=== PATIENT | female | born 1955 | race Caucasian/White ===

== ENCOUNTER 2022-07-31 05:56 | Inpatient (IN) | payer MEDICARE, BC ==
[~2022-07-31] VITALS: Ht 167.6 cm; Wt 72.6 kg
[2022-07-31] MEDS ORDERED: ONDANSETRON 4 MG/2 ML VIAL IV ONE (06:15)
[2022-07-31] MEDS ORDERED: methylPREDNISolone SOD SUCC 125 MG/2 ML VIAL IV ONE (06:15)
[2022-07-31] MEDS ORDERED: HYDROMORPHONE 1 MG/1 ML DISP.SYRIN IV ONE (06:15)
[2022-07-31] MEDS ORDERED: DILT180T11 PO (06:32)
[2022-07-31] MEDS ORDERED: METO50TA16 PO (06:32)
[2022-07-31] MEDS ORDERED: LORA0.5T48 PO (06:32)
[2022-07-31] MEDS ORDERED: [UNRECOGNIZED DRUG - CODE] PO (06:32)
[2022-07-31] MEDS ORDERED: ALPR0.5T8 PO (06:32)
[2022-07-31] MEDS ORDERED: ONDANSETRON 4 MG/2 ML VIAL ONE (06:46)
[2022-07-31] MEDS ORDERED: HYDROMORPHONE 2 MG/1 ML DISP.SYRIN ONE (06:47)
[2022-07-31] MEDS ORDERED: methylPREDNISolone SOD SUCC 125 MG/2 ML VIAL ONE (06:47)
[2022-07-31 06:57] LABS: HEMATOCRIT 39.7 % (31.2-41.9); MEAN CORPUSCULAR HEMOGLOBIN 32.7 uug (24.7-32.8); MEAN CORPUSCULAR VOLUME 95.9 fL (75.5-95.3); PLATELET COUNT (AUTO) 345 K/uL (179-408)
--- NOTE | 2022-07-31 07:00 | NUR ---
receive pt. from SOPHIA KELLEY at this time
--- NOTE | 2022-07-31 07:04 | NUR ---
Report given to Eunice CORTES.
--- NOTE | 2022-07-31 07:04 | NUR ---
Patient sleeping comfortably in bed, no signs of distress noted.
[2022-07-31 07:08] LABS: MAGNESIUM 2.3 mg/dL (1.8-2.4); POTASSIUM 3.7 mmol/L (3.5-5.1)
--- NOTE | 2022-07-31 10:19 | NUR ---
moved to RM 206, with Jean Pierre CORTES
[2022-07-31 10:59] VITALS: BP 140/59
--- NOTE | 2022-07-31 11:00 | NUR ---
report received from Eunice CRUZ RN. pt alert and oriented. presented to ER with severe leg and groin pain. pt have a history of MS. pt ambulatory; skin intact ; lac 22g iv access; continent of both. pt will be admitted to [facility] on [address]. best virgen n.p will f/u care.
[2022-07-31] MEDS ORDERED: ACETAMINOPHEN 325 MG TABLET PO PRN (11:30)
[2022-07-31] MEDS ORDERED: MAGNESIUM HYDROXIDE 30 ML LIQUID UDC PO PRN (11:30)
[2022-07-31] MEDS ORDERED: ZOLPIDEM 5 MG TABLET PO PRN (11:30)
[2022-07-31] MEDS ORDERED: REMEDY ESSENTIAL ZINC PASTE 113 GM TP PRN (11:30)
[2022-07-31] MEDS ORDERED: ONDANSETRON 4 MG/2 ML VIAL IV PRN (11:30)
[2022-07-31] MEDS ORDERED: methylPREDNISolone SOD SUCC 40 MG/ML VIAL IV ONE (12:00)
--- NOTE | 2022-07-31 12:00 | NUR ---
pt was seen by neurologist and hospitalist. new order in placed.
--- NOTE | 2022-07-31 12:57 | NUR ---
WOUND CARE CONSULT: PT SEEN FOR RAISED VESICLES TO RT THIGH, PRESENT ON ADMISSION. PT EXAMINED BY NEURO SEROLOGY TEACHER. DEFER TO PMD/SEROLOGY TEACHER FOR VESICLES. DISCUSSED SKIN PROTECTION WITH NURSING STAFF.MD IN AGREEMENT WITH PLAN OF CARE.
[2022-07-31] MEDS ORDERED: methylPREDNISolone SOD SUCC 1,000 MG in IV DEXTROSE 5% 250 ML IV ONE (13:00)
[2022-07-31] MEDS ORDERED: METO50TA7 PO (13:32)
[2022-07-31] MEDS: HYDROMORPHONE 1 MG/1 ML DISP.SYRIN IV PRN ×2 (13:36→22:47)
[2022-07-31] MEDS: METOPROLOL SUCCINATE XL 50 MG TAB.SR.24H PO SCH (13:41)
[2022-07-31 15:07] VITALS: BP 103/40
[2022-07-31 15:43] LABS: *BILIRUBIN,URIN NEGATIVE (NEGATIVE); *BLOOD, URINE NEGATIVE (NEGATIVE); *CLARITY,URINE CLEAR (CLEAR); *COLOR,URINE YELLOW (YELLOW); *KETONES,URINE NEGATIVE (NEGATIVE); *UROBILINOGEN,URINE 0.2 E.U./dl (NORMAL); LEUKOCYTE ESTERASE ,URINE NEGATIVE (NEGATIVE); NITRITE, URINE NEGATIVE (NEGATIVE); PH,URINE 6.5 (5.0-8.0); UGLUCOSE NEGATIVE (NEGATIVE)
--- NOTE | 2022-07-31 16:40 | NUR ---
MRI OF LSPINE W/O CONTRAST WEN PER CM TIME TO BE DETERMINED
--- NOTE | 2022-07-31 20:00 | NUR ---
RECEIVED PATIENT RESTING IN BED, NOT IN ANY ACUTE DISTRESS, ANSWERED ALL QUESTIONS. BED IN LOWEST POSITION AND CALL LIGHT WITHIN REACH
[2022-07-31 20:17] VITALS: BP 135/57
[2022-07-31] MEDS: DILTIAZEM HCL CD 180 MG CAP.SR.24H PO SCH (22:45)
[2022-08-01 06:00] VITALS: BP 121/53
[2022-08-01] MEDS: PANTOPRAZOLE SODIUM 40 MG TABLET.DR PO SCH (06:28)
[2022-08-01] MEDS: HYDROMORPHONE 1 MG/1 ML DISP.SYRIN IV PRN ×3 (06:29→16:08)
[2022-08-01 06:34] LABS: HEMATOCRIT 39.3 % (31.2-41.9); MEAN CORPUSCULAR HEMOGLOBIN 32.4 uug (24.7-32.8); MEAN CORPUSCULAR VOLUME 95.7 fL (75.5-95.3); PLATELET COUNT (AUTO) 344 K/uL (179-408)
--- NOTE | 2022-08-01 06:48 | NUR ---
PATIENT RESTED WELL IN BED IN BETWEEN CARE, NOT IN ANY ACUTE DISTRESS. PAIN MANAGED WITH DILAUDID. ANSWERED ALL QUESTIONS. MRI CHECKLIST COMPLETED. BED IN LOWEST POSITION AND CALL LIGHT WITHIN REACH. IV DC FROM RIGHT FA AND NEW IV PLACED LEFT FA 22G.
[2022-08-01 06:50] LABS: MAGNESIUM 2.2 mg/dL (1.8-2.4); PHOSPHOROUS 2.9 mg/dL (2.5-4.9); POTASSIUM 4.4 mmol/L (3.5-5.1)
[2022-08-01] MEDS: METOPROLOL SUCCINATE XL 50 MG TAB.SR.24H PO SCH (08:41)
[2022-08-01] MEDS: [UNRECOGNIZED DRUG - OTHER] PO SCH (08:41)
[2022-08-01] MEDS ORDERED: methylPREDNISolone SOD SUCC 125 MG/2 ML VIAL IV SCH (09:00)
[2022-08-01] MEDS ORDERED: methylPREDNISolone SOD SUCC 40 MG/ML VIAL IV SCH (09:00)
[2022-08-01] MEDS ORDERED: METOPROLOL TARTRATE 50 MG TABLET PO SCH (09:00)
[2022-08-01] MEDS ORDERED: METOPROLOL SUCCINATE XL 50 MG TAB.SR.24H PO SCH (09:00)
[2022-08-01] MEDS ORDERED: DILTIAZEM HCL CD 180 MG CAP.SR.24H PO SCH (09:00)
[2022-08-01] MEDS ORDERED: POLYVINYL ALCOHOL OPHT DROPS 15 ML BOTTLE EACHEYE PRN (09:30)
--- NOTE | 2022-08-01 09:45 | NUR ---
SEEN BY DR HOYOS AND Anupama HULL HOSPITALIST WITH ORDER TO PROCEED WITH MRI, CONTINUE WITH SOLUMEDROL ORDERED. ALSO HOSPITALIST ORDERED ATIVAN FOR ANXIETY PRN
[2022-08-01] MEDS: VALACYCLOVIR HCL 500 MG TABLET PO SCH ×2 (10:37→21:41)
[2022-08-01] MEDS: methylPREDNISolone SOD SUCC 500 MG in IV DEXTROSE 5% 100 ML IV SCH (11:02)
[2022-08-01] MEDS: MUPIROCIN 2% OINT 22 GM TUBE TP SCH ×2 (11:02→21:41)
[2022-08-01 12:00] VITALS: BP 117/54
--- NOTE | 2022-08-01 12:37 | NUR ---
TO J[facility] MUNROE VIA AMBULANCE FOR MRI
--- NOTE | 2022-08-01 14:08 | NUR ---
BACK FROM MRI NO SS OF PAIN OR DISTRESS
[2022-08-01 14:55] VITALS: BP 126/56
--- NOTE | 2022-08-01 15:40 | NUR ---
CONTINUE WITH PAIN MANAGEMENT ORDERED, NO ACUTE CHANGE FROM MORNING ASSESSMENT
[2022-08-01] MEDS ORDERED: FAMOTIDINE. 20 MG/2 ML VIAL IV SCH ×3 (16:00→17:00)
--- NOTE | 2022-08-01 16:00 | NUR ---
C/O GENERALIZED ITCHING DELLA NOTIFIED WITH ORDERS
[2022-08-01] MEDS ORDERED: hydrOXYzine HCL 10 MG/5 ML UDC PO PRN (16:45)
[2022-08-01] MEDS: hydrOXYzine HCL 10 MG TABLET PO PRN (16:48)
--- NOTE | 2022-08-01 17:00 | NUR ---
FIRST DOSE OF PEPCID AND ATARAX GIVEN FOR GENERALIZED ITCHING, OBSERVED
--- NOTE | 2022-08-01 17:59 | NUR ---
PEPDOSE DOSE FOR 1700 NOT GIVEN, FIRST DOSE GIVEN AT 1648
[2022-08-01 20:00] VITALS: BP 143/62
[2022-08-01] MEDS: DILTIAZEM HCL CD 180 MG CAP.SR.24H PO SCH (21:41)
[2022-08-01] MEDS: LORAZEPAM 2 MG/1 ML VIAL IV PRN (22:34)
--- NOTE | 2022-08-02 | NUR ---
RESTING QUIETLY IN BED, NO ACUTE DISTRESS NOTED.IN [employer]IRITS,
[2022-08-02] MEDS: HYDROMORPHONE 1 MG/1 ML DISP.SYRIN IV PRN (04:23)
[2022-08-02] MEDS: PANTOPRAZOLE SODIUM 40 MG TABLET.DR PO SCH (06:06)
[2022-08-02 06:31] VITALS: BP 103/38
--- NOTE | 2022-08-02 08:00 | NUR ---
SEEN BY Anupama HULL FOR F/U, DISCLOSED PLAN OF CARE AND RESULTS OF MRI. WILL START ON ROCEPHIN IV. SEE NOTES. STILL C/O ON AND OFF SPASM LOWER SPINE WILL INITIATE PRN MEDICATION ORDERED
[2022-08-02] MEDS: VALACYCLOVIR HCL 500 MG TABLET PO SCH ×2 (08:52→20:19)
[2022-08-02] MEDS: [UNRECOGNIZED DRUG - OTHER] PO SCH ×2 (08:53→09:00)
[2022-08-02] MEDS: MUPIROCIN 2% OINT 22 GM TUBE TP SCH ×2 (08:53→21:00)
[2022-08-02] MEDS ORDERED: SENNOSIDES 1 TABLET PO PRN ×2 (09:00→15:15)
[2022-08-02] MEDS: CARISOPRODOL 350 MG TABLET PO PRN ×2 (09:00→15:31)
[2022-08-02] MEDS: METOPROLOL SUCCINATE XL 50 MG TAB.SR.24H PO SCH (09:06)
[2022-08-02] MEDS: CEFTRIAXONE 1 G in IV DEXTROSE 5% 50 ML IV SCH (09:21)
--- NOTE | 2022-08-02 10:00 | NUR ---
ROECKIN IV FIRST DOSE GIVEN NO SIGNS OF ALLERGY REACTION NOTED
[2022-08-02] MEDS: methylPREDNISolone SOD SUCC 500 MG in IV DEXTROSE 5% 100 ML IV SCH (10:23)
[2022-08-02 12:00] VITALS: BP 138/59
[2022-08-02] MEDS ORDERED: methylPREDNISolone SOD SUCC 500 MG in IV DEXTROSE 5% 100 ML IV ONE (15:00)
[2022-08-02] MEDS: MAGNESIUM HYDROXIDE 30 ML LIQUID UDC PO PRN (15:30)
[2022-08-02 16:00] VITALS: BP 157/64
[2022-08-02] MEDS: FAMOTIDINE. 20 MG/2 ML VIAL IV SCH (16:12)
[2022-08-02] MEDS: hydrOXYzine HCL 10 MG TABLET PO PRN (16:19)
[2022-08-02 20:00] VITALS: BP 137/57
[2022-08-02] MEDS: LORAZEPAM 2 MG/1 ML VIAL IV PRN (20:18)
[2022-08-02] MEDS: DILTIAZEM HCL CD 180 MG CAP.SR.24H PO SCH (21:00)
--- NOTE | 2022-08-02 23:16 | NUR ---
REPORT GIVEN TO SOPHIA GTZ
[2022-08-03] MEDS: LORAZEPAM 2 MG/1 ML VIAL IV PRN ×2 (04:30→16:45)
--- NOTE | 2022-08-03 07:40 | NUR ---
RESTED FAIRLY WELL, FOR MRI OF LUMBAR IN AM, CONSENT SIGNED,APPROPRIATE PAPERWORKS COMPLETED. YONI GAR WILL ARRANGE FOR TRANSPORT SERVICE TO GO TO [facility] AT 11 AM , ENDORSED TO AM NURSE IN FAIR CONDITION.
[2022-08-03] MEDS: PANTOPRAZOLE SODIUM 40 MG TABLET.DR PO SCH (08:07)
[2022-08-03] MEDS: [UNRECOGNIZED DRUG - OTHER] PO SCH (08:08)
[2022-08-03] MEDS: CEFTRIAXONE 1 G in IV DEXTROSE 5% 50 ML IV SCH (08:08)
[2022-08-03] MEDS: VALACYCLOVIR HCL 500 MG TABLET PO SCH ×2 (08:09→20:33)
[2022-08-03] MEDS: MUPIROCIN 2% OINT 22 GM TUBE TP SCH ×2 (08:09→20:33)
[2022-08-03] MEDS: METOPROLOL SUCCINATE XL 50 MG TAB.SR.24H PO SCH (08:35)
[2022-08-03] MEDS ORDERED: methylPREDNISolone SOD SUCC 1,000 MG in IV DEXTROSE 5% 250 ML IV SCH (09:00)
--- NOTE | 2022-08-03 10:15 | NUR ---
Spoke to pharmacy regarding Rocephin and Solu-medrol being scheduled at the same time. They said okay to give in the same IV one after the other. Gave Rocephin first at 60mls/hr for pt comfort. Since pt is leaving the facility for an MRI, pharmacy agreed that it would be okay to hold her Solu-medrol and give it when she returns to her room after her procedure.
[2022-08-03] MEDS: HYDROMORPHONE 1 MG/1 ML DISP.SYRIN IV PRN ×2 (10:25→21:22)
--- NOTE | 2022-08-03 10:55 | NUR ---
Pt left unit for MRI of Lumbar spine at [facility]. Pt stable, VSS, pain meds given, no s/s of distress or SOB noted. Left via ambulance accompanied by 2 collection card clerk.
--- NOTE | 2022-08-03 14:43 | NUR ---
PATIENT FALL: When the patient arrived back to the Med Surg unit from her MRI at [facility], I was in another room and a different nurse signed for the patient from the ambulance. That nurse reported to me that the ambulance placed the patient in her chair next to her bed, which the patient confirmed. Then when that nurse checked on the patient, the patient was on the floor. I immediately went to check on the patient. The patient reported to me that she tried to move the bed by herself without notifying anyone or asking for help. The bed was locked, so when the patient pulled the headboard came off and she fell backwards into the wall and padded foot stool and then onto the floor, knocking over the water on her table in the process. She hit her head (no lump or laceration noted), hit her back (patient c/o pain and was given Soma per patient request and an ice pack was placed on her low back), and hit her Right forearm (no new bruise noted at this time, an ice pack was placed on her forearm). I spoke to Red Gunn NP and he is in agreement with treatment and continued monitoring. Educated patient on the need to ask for help, use her call light, and notify staff when she needs help moving her bed or anything else that could cause her pain/injury. Patient verbalized understanding. Will continue to monitor patient for changes, which the patient was educated to report as well. Will endorse.
[2022-08-03] MEDS: CARISOPRODOL 350 MG TABLET PO PRN (14:54)
[2022-08-03] MEDS: methylPREDNISolone SOD SUCC 1,000 MG in IV DEXTROSE 5% 250 ML IV SCH (15:17)
[2022-08-03 16:00] VITALS: BP 148/58
--- NOTE | 2022-08-03 16:24 | NUR ---
Pt spoke with her management trainee who asked if we can biopsy the bumps on her Right leg, which the pt thinks is herpes. I spoke with Red Gunn NP and he says that we do not do biopsies here. He confirmed that the bumps are herpes and that is why he is treating pt with Valacyclovir. Notified the pt.
[2022-08-03] MEDS: FAMOTIDINE. 20 MG/2 ML VIAL IV SCH (17:00)
[2022-08-03] MEDS ORDERED: GADOTERATE MEGLUMINE 10 MMOL/20 ML VIAL IV ONE (17:30)
--- NOTE | 2022-08-03 20:00 | NUR ---
RECEIVED PATIENT AWAKE IN BED. A/O X4. C/O MUILD DISCOMFORT AT THIS TIME, DENIES ANY NEED FOR PAIN MEDICATION AT THIS TIME. CALL LIGHT IN REACH. ALL NEEDS ATTENDED, WILL CONTINUE TO MONITOR AND ASSESS.
[2022-08-03 20:30] VITALS: BP 135/53
[2022-08-03] MEDS: DILTIAZEM HCL CD 180 MG CAP.SR.24H PO SCH (20:34)
[2022-08-04 05:46] VITALS: BP 144/55
[2022-08-04] MEDS: PANTOPRAZOLE SODIUM 40 MG TABLET.DR PO SCH (06:11)
[2022-08-04] MEDS: CEFTRIAXONE 1 G in IV DEXTROSE 5% 50 ML IV SCH ×2 (09:51→22:49)
[2022-08-04] MEDS: MUPIROCIN 2% OINT 22 GM TUBE TP SCH ×2 (09:52→21:00)
[2022-08-04] MEDS: VALACYCLOVIR HCL 500 MG TABLET PO SCH ×2 (09:52→21:06)
[2022-08-04] MEDS: METOPROLOL SUCCINATE XL 50 MG TAB.SR.24H PO SCH (09:58)
[2022-08-04] MEDS: [UNRECOGNIZED DRUG - OTHER] PO SCH (09:59)
[2022-08-04] MEDS: MAGNESIUM HYDROXIDE 30 ML LIQUID UDC PO PRN (10:14)
[2022-08-04 11:33] VITALS: BP 177/67
[2022-08-04] MEDS: LORAZEPAM 2 MG/1 ML VIAL IV PRN (12:39)
[2022-08-04] MEDS ORDERED: CLONIDINE HCL 0.1 MG TABLET PO PRN (12:45)
[2022-08-04 16:00] VITALS: BP 148/58
[2022-08-04] MEDS: ERYTHROMYCIN 0.5% OPHT OINT 3.5 GM TUBE EACHEYE SCH ×2 (16:29→21:00)
[2022-08-04] MEDS: methylPREDNISolone SOD SUCC 1,000 MG in IV DEXTROSE 5% 250 ML IV SCH (16:30)
[2022-08-04] MEDS ORDERED: FLURANDRENOLIDE TOP SCH (17:00)
--- NOTE | 2022-08-04 20:00 | NUR ---
Patient received in bed alert and oriented vital BP high medication given as order made safe and comfortable. patient complained of generalize pain medication given as order made safe and comfortable.
[2022-08-04] MEDS: DILTIAZEM HCL CD 180 MG CAP.SR.24H PO SCH (21:05)
[2022-08-04] MEDS: HYDROMORPHONE 1 MG/1 ML DISP.SYRIN IV PRN (22:49)
[2022-08-05] VITALS: BP 144/71
[2022-08-05] MEDS: HYDROMORPHONE 1 MG/1 ML DISP.SYRIN IV PRN ×3 (02:04→02:07)
[2022-08-05] MEDS: LORAZEPAM 2 MG/1 ML VIAL IV PRN (02:06)
--- NOTE | 2022-08-05 02:38 | NUR ---
patient complained of anxiety medication given as order patient made safe and comfortable with continue monitor.
[2022-08-05 06:56] LABS: HEMATOCRIT 39.7 % (31.2-41.9); MEAN CORPUSCULAR HEMOGLOBIN 32.4 uug (24.7-32.8); MEAN CORPUSCULAR VOLUME 95.8 fL (75.5-95.3); PLATELET COUNT (AUTO) 327 K/uL (179-408)
[2022-08-05 07:10] LABS: CREATININE 0.8 mg/dL (0.6-1.3); POTASSIUM 3.5 mmol/L (3.5-5.1)
[2022-08-05] MEDS ORDERED: predniSONE 50 MG TABLET PO SCH (08:00)
--- NOTE | 2022-08-05 08:00 | NUR ---
Received patient in bed lying awake, alert and oriented. Pt. with IV line at left hand g.22 intact and patent No complain, not in distress. Vitals signs taken and recorded. Medications given and recorded Seen and examined by Dr. Araujo with order for discharge
[2022-08-05] MEDS: [UNRECOGNIZED DRUG - OTHER] PO SCH (08:56)
[2022-08-05] MEDS: ERYTHROMYCIN 0.5% OPHT OINT 3.5 GM TUBE EACHEYE SCH (08:58)
[2022-08-05] MEDS: VALACYCLOVIR HCL 500 MG TABLET PO SCH (08:58)
[2022-08-05] MEDS: MUPIROCIN 2% OINT 22 GM TUBE TP SCH (08:59)
[2022-08-05] MEDS ORDERED: FAMOTIDINE 20 MG TABLET PO SCH (09:00)
[2022-08-05] MEDS: METOPROLOL SUCCINATE XL 50 MG TAB.SR.24H PO SCH (09:10)
[2022-08-05 10:50] LABS: MAGNESIUM 2.5 mg/dL (1.8-2.4)
[2022-08-05 11:41] VITALS: BP 163/63
--- NOTE | 2022-08-05 12:00 | NUR ---
Discharge order carried out. Prepared discharge summary and papers for the patient Removed IV cannula clean and dry Given and instructed discharge papers. All questions answered Assisted patient using wheel chair Discharge at 1410
[2022-08-05] MEDS ORDERED: CARI350T PO ×2 (12:48→13:03)
[2022-08-05] MEDS ORDERED: PRED50TA PO ×2 (12:48→13:03)
[2022-08-05] MEDS ORDERED: VALA100026 PO ×2 (12:48→13:03)
[2022-08-05] MEDS ORDERED: SULF-11 PO ×2 (12:48→13:03)
[2022-08-05] MEDS ORDERED: HYDR-501 PO ×2 (12:48→13:03)
[2022-08-05] MEDS ORDERED: KETO10TA2 PO ×2 (12:48→13:03)
[2022-08-05] MEDS ORDERED: FAMO10TA41 PO (12:48)
[2022-08-05] MEDS ORDERED: FAMO20TA8 PO (13:03)
== END 2022-08-05 14:10 | disposition home health service (06) | DRG 60 ==
LOC: ER 06:02 → TELE 08:58 → MED 09:15 → MEDSURG3 08-01 17:11
PROVIDERS: ADMIT Nurse Practitioner Acute Care; ATTEND Nurse Practitioner Acute Care
DX: G35 Multiple sclerosis (principal); B02.9 Zoster without complications; M79.661 Pain in right lower leg; Z86.19 Personal history of other infectious and parasitic diseases; Z85.3 Personal history of malignant neoplasm of breast; I10 Essential (primary) hypertension; Z79.899 Other long term (current) drug therapy; Z79.52 Long term (current) use of systemic steroids; Z88.6 Allergy status to analgesic agent; Z88.1 Allergy status to other antibiotic agents; Z88.8 Allergy status to other drugs, medicaments and biological substances; F41.9 Anxiety disorder, unspecified; M51.36 Other intervertebral disc degeneration, lumbar region; R20.0 Anesthesia of skin
CPT/HCPCS: 36415; 70030-TC; 70553; 72148; 72158; 83735; 84100; 85025; A4663; A6209; A9575; G0378; J0696; J1170; J2060; J2405; J2930; J3490; J7050; J7512